=== PATIENT | male | born 1940 | race Caucasian/White ===

== ENCOUNTER 2017-07-09 10:45 | Outpatient (CLI) | payer MEDICARE, OTHER | END 2017-07-09 10:46 | disposition home or self-care (01) | LOC: BICRAD 10:45 | PROVIDERS: ATTEND Specialist | DX: M47.26 Other spondylosis with radiculopathy, lumbar region (principal); M41.86 Other forms of scoliosis, lumbar region; M47.22 Other spondylosis with radiculopathy, cervical region | CPT/HCPCS: 72050; 72120 ==

== ENCOUNTER 2017-12-04 11:06 | Outpatient (CLI) | payer MEDICARE ==
--- NOTE | 2017-12-04 14:35 | RAD ---
RIGHT HAND THREE VIEW: 12/04/17 HISTORY: M35.50 right hand and wrist pain. COMPARISON: None. FINDINGS: The bones are demineralized. No acute displaced fracture or malalignment. Moderate metacarpophalangea l joint space narrowing. There is ossification of the triangular fibrocartilage. There is ossicle of the ulnar styloid. IMPRESSION: Osseous demineralization. No acute fracture or malalignment. POS: [facility]
== END 2017-12-04 11:07 | disposition home or self-care (01) ==
LOC: BICRAD 11:06
PROVIDERS: ATTEND Specialist
DX: M25.531 Pain in right wrist (principal); M25.541 Pain in joints of right hand; M81.0 Age-related osteoporosis without current pathological fracture

== ENCOUNTER 2018-02-19 09:46 | Outpatient (CLI) | payer MEDICARE ==
--- NOTE | 2018-02-19 12:02 | CT ---
CT CHEST WITHOUT CONTRAST: 02/19/2018 HISTORY: COPD. Shortness of breath. Productive cough. Weight loss. COMPARISON: 11/08/2017 TECHNIQUE: Axial CT imaging at 2 mm intervals through the chest without contrast. Coronal reformatted imaging o btained. FINDINGS: The lack of contrast media limits assessment of the imaged viscera and the vascular structures and fo r lymphadenopathy. There is no obvious lymphadenopathy seen within the chest. The thyroid gland is diffusely lobulated and enlarged, particularly the right lobe, with posterior ex tension. The imaged upper abdomen demonstrates no acute findings. There are patchy areas of atherosclerotic c alcification of the proximal abdominal aorta and its branches. There is no evidence for pneumothorax on either side. There is extensive central lobular and subpleural emphysematous changes, with an upper lobe predomina nce, stable. There are numerous calcified and noncalcified bilateral pleural plaques, similar when compared to the prior examination, suggesting prior asbestos exposure. There is scattered atherosclerotic calcification of the coronary arteries and the thoracic aorta. There is no dominant pulmonary parenchymal mass lesion or nodule noted in the left upper lobe. There are patchy peripheral areas of mild increased density within the inferior aspect of the left lo wer lobe, at the level of the left hemidiaphragm, new/more prominent than on the prior examination. This could be related to infectious pneumonitis or volume loss. Along the inferior-most aspect of the right lower lobe, abutting a mildly elevated right hemidiaphrag m, are patchy areas of peripheral pulmonary parenchymal opacity, slightly more prominent than on the prior examination, particularly the posterior-inferior right upper lobe. This could represent volume loss or infectious pneumonitis within the right lower lobe. There is persistent linear density in the right middle lobe, suggesting volume loss or scar. Review of the osseous structures demonstrates no worrisome lytic or blastic bone lesion. IMPRESSION: Extensive chronic change, as detailed above. This includes centrilobular and paraseptal emphysematou s change, as well as elevation of right hemidiaphragm and extensive pleural plaque formation on the b asis of probable prior asbestos exposure. Of note, there is mild increased parenchymal opacity in darrin th lower lobes, when compared to the prior examination, of uncertain significance. This could signif y volume loss associated with shallow inspiration, but mild bibasilar infectious pneumonitis or aspir ation cannot be excluded. Recommend follow-up imaging, following treatment, to document resolution. POS: [facility]
== END 2018-02-19 09:47 | disposition home or self-care (01) ==
LOC: BICCT 09:46
PROVIDERS: ATTEND Specialist
DX: J44.9 Chronic obstructive pulmonary disease, unspecified (principal); R64 Cachexia; Q79.1 Other congenital malformations of diaphragm; J92.9 Pleural plaque without asbestos; R91.8 Other nonspecific abnormal finding of lung field
CPT/HCPCS: 71250

== ENCOUNTER 2018-03-10 19:06 | Emergency (ER) | payer MEDICARE ==
[2018-03-10 21:23] LABS: #Eosinphils 0.2 thou/uL (0.0-0.7); #Lymphocytes 1.4 thou/uL (1.20-3.40); #Monocytes 0.9 thou/uL (0.11-0.59); %Basophils 0.1 % (0.0-1.0); %Eosinophils 1.4 % (0.0-10.0); %Monocytes 7.6 % (0.0-10.0); %Neutrophils 78.8 % (42.0-75.0); Hemoglobin 16.1 g/dL (14.0-18.0); Mean Corpuscular HGB CONC 30.8 g/dL (32.0-36.0); Mean Corpuscular Hemoglobin 28.4 pg (27.0-31.0); Mean Corpuscular Volume 92.1 fL (78.0-98.0); Mean Platelet Volume 9.1 fL (7.4-10.4); Platelet Count 350 thou/uL (130-400); RBC Distribution Width 12.6 % (11.5-14.5); Red Blood Cell (RBC) Count 5.67 mill/uL (4.70-6.10); White Blood Cell (WBC) Count 11.4 thou/uL (4.8-10.8)
[2018-03-10 21:46] LABS: ALT (SGPT) 36 U/L (8-55); AST (SGOT) 27 U/L (5-34); Albumin 3.9 g/dL (3.4-4.8); Alkaline Phosphatase 167 U/L (40-150); Anion Gap 16 mmol/L (10-20); BUN (Urea Nitrogen) 43 mg/dL (8.4-25.7); Bilirubin, Total 0.3 mg/dL (0.2-1.2); Calc. Creatinine Clearance 0 mL/min (70-130); Calcium 10.8 mg/dL (7.8-10.44); Carbon Dioxide 27 mmol/L (23-31); Chloride 104 mmol/L (98-107); Estimated GFR-MDRD 75; Globulin 4.6 g/dL (2.4-3.5); Glucose 128 mg/dL (83-110); Potassium 4.6 mmol/L (3.5-5.1); Protein, Total 8.5 g/dL (5.8-8.1); Sodium 142 mmol/L (136-145)
--- NOTE | 2018-03-10 23:47 | RAD ---
PORTABLE CHEST: 03/10/2018 PROVIDED CLINICAL HISTORY: Cough. COMPARISON: CT examination performed on 02/19/2018. FINDINGS: Bibasilar parenchymal and interstitial opacities are redemonstrated, similar to that study. The card iac and mediastinal silhouette are unchanged in appearance. No evidence for pneumothorax or large ef fusion. IMPRESSION: Persistent bibasilar parenchymal opacities. Followup is recommended. POS: [facility]
--- NOTE | 2018-03-10 23:49 | CT ---
CT BRAIN: 03/10/2018 PROVIDED CLINICAL HISTORY: Dysphagia. COMPARISON: None. FINDINGS: The ventricular system appears normal in size and morphology. There is no evidence for intracranial hemorrhage or mass effect. Areas of diminished attenuation are seen involving the cerebral white mat ter, most likely reflecting chronic microvascular ischemic change. The extracranial soft tissues and osseous structures demonstrate an unremarkable CT appearance, with the exception of fluid density wi thin the left maxillary sinus. IMPRESSION: 1. No evidence for intracranial hemorrhage or mass effect. 2. Left maxillary sinus fluid density. Correlate for acute sinusitis. POS: [facility]
== END 2018-03-11 01:38 | disposition home or self-care (01) ==
LOC: ERS 19:06
DX: R13.10 Dysphagia, unspecified (principal); E78.5 Hyperlipidemia, unspecified; Z87.891 Personal history of nicotine dependence; Z79.899 Other long term (current) drug therapy
CPT/HCPCS: 36415; 70450; 71045; 80053; 85025; 96360; 96361

== ENCOUNTER 2018-03-12 09:59 | Inpatient (IN) | payer MEDICARE ==
[2018-03-12] MEDS ORDERED: CEFAZOLIN 2 GM/50 ML BAG ONE (12:01)
[2018-03-12] MEDS ORDERED: Fentanyl 100 MCG/2 ML VIAL ONE ×2 (12:51→14:14)
[2018-03-12] MEDS ORDERED: PROPOFOL 200 MG/20 ML VIAL ONE (15:06)
[2018-03-12] MEDS ORDERED: Lidocaine 1% PF 5 ML VIAL ONE (15:06)
[2018-03-12 16:52] LABS: #Eosinphils 0.2 thou/uL (0.0-0.7); #Lymphocytes 1.2 thou/uL (1.20-3.40); #Monocytes 0.6 thou/uL (0.11-0.59); #Neutrophils 8.8 thou/uL (1.40-6.50); %Basophils 0.2 % (0.0-1.0); %Eosinophils 1.5 % (0.0-10.0); %Lymphocytes 10.8 % (21.0-51.0); %Monocytes 5.9 % (0.0-10.0); %Neutrophils 81.7 % (42.0-75.0); Hemoglobin 14.7 g/dL (14.0-18.0); Mean Corpuscular HGB CONC 31.9 g/dL (32.0-36.0); Mean Corpuscular Hemoglobin 29.4 pg (27.0-31.0); Mean Corpuscular Volume 92.2 fL (78.0-98.0); Mean Platelet Volume 8.8 fL (7.4-10.4); Platelet Count 260 thou/uL (130-400); RBC Distribution Width 12.5 % (11.5-14.5); White Blood Cell (WBC) Count 10.7 thou/uL (4.8-10.8)
[2018-03-12 17:32] LABS: ALT (SGPT) 26 U/L (8-55); AST (SGOT) 20 U/L (5-34); Albumin 3.2 g/dL (3.4-4.8); Alkaline Phosphatase 116 U/L (40-150); Anion Gap 15 mmol/L (10-20); BUN (Urea Nitrogen) 27 mg/dL (8.4-25.7); Bilirubin, Total 0.3 mg/dL (0.2-1.2); Calc. Creatinine Clearance 75 mL/min (70-130); Calcium 9.8 mg/dL (7.8-10.44); Carbon Dioxide 24 mmol/L (23-31); Chloride 106 mmol/L (98-107); Estimated GFR-MDRD Greater than 90; Globulin 3.4 g/dL (2.4-3.5); Glucose 86 mg/dL (83-110); Magnesium 1.7 mg/dL (1.6-2.6); Potassium 4.1 mmol/L (3.5-5.1); Protein, Total 6.6 g/dL (5.8-8.1); Sodium 141 mmol/L (136-145)
[2018-03-12 17:44] LABS: Syphilis Antibody Nonreactive (Nonreactive); Syphilis Antibody Index 0.06 S/CO (<1.00 Non-Reactive)
[2018-03-12] MEDS: Lactated Ringer's 1,000 ML IV SCH (18:58)
[2018-03-12] MEDS: Tamsulosin HCl 0.4 MG CAP PO SCH (19:54)
[2018-03-12] MEDS: Citalopram 20 MG TAB PO SCH (19:54)
[2018-03-12] MEDS: Finasteride 5 MG TAB PO SCH (19:54)
[2018-03-13] MEDS: Lactated Ringer's 1,000 ML IV SCH ×2 (05:24→09:02)
[2018-03-13] MEDS ORDERED: Prevnar 13-Val Conj/PF 0.5 ML SYRINGE IM ONE (09:00)
[2018-03-13 10:19] LABS: Reference Lab Name LABCORP
[2018-03-13 10:20] LABS: Ref Lab Test Ordered ACETYLCHOLINE AB
--- NOTE | 2018-03-13 12:08 | CON ---
DATE OF CONSULTATION: 03/12/2018 CONSULTING PHYSICIAN: Bill Mukherjee MD CHIEF COMPLAINT: Severe dysphagia with extreme weight loss. HISTORY OF PRESENT ILLNESS: The patient is a 77-year-old male, who since the month of July and August of 2017 have been having increasing dysphagia and weight loss. Workups have been ongoing to find the source and reason for this, it is coming down to a swallowing disorder, at the back of his throat where he simply feels like he is choking every time he takes a bite and ultimately has diminished his p.o. consumption to the point where he is severely malnourished and failing to thrive. The patient went to the emergency room on 03/12/2018 and arranged a plan for PEG placement on the day of observation on 03/12/2018. He denies fevers, chills, severe pain in any specific location. He has lost 30 pounds since September. There has been no evidence of CVA on previous MRI performed in September. He is a former smoker with 60 plus pack year. His ENT is Dr. Colindres. PAST MEDICAL HISTORY: Includes hyperlipidemia; COPD, emphysematous type; history of GERD; BPH; and recently depression. PAST SURGICAL HISTORY: Prior surgeries include right shoulder. PAST PSYCHIATRIC HISTORY: Depression. SOCIAL HISTORY: As previously mentioned, he is a former smoker of 60 plus pack years. He is , retired, has been less than 10 years since he quit smoking. No significant alcohol intake. ALLERGIES: TO LIDOCAINE. MEDICATIONS: At this time, 1. Flomax 0.4 mg p.o. daily. 2. Citalopram 20 mg p.o. daily. REVIEW OF SYSTEMS: At the time of consultation were significant for generalized weakness and inability to lay flat due to a feeling of dyspnea, ongoing dysphagia with weight loss. Denies chest pain, blood in urine or stool, or skin disorders. PHYSICAL EXAMINATION: At the time of consultation, VITAL SIGNS: Blood pressure is 116/69, pulse 85, respirations 19, and O2 saturation 92% on nasal cannula, which is ineffective since he is mouth breathing. His weight at the time of evaluation is 142. GENERAL: This is a cachectic, malnourished-appearing male, alert, responsive, with sunken eyes and temporal wasting. HEENT: Ears, nose, and throat show no obvious lesions. NECK: Supple. Nontender. CHEST: With diminished breath sounds throughout. HEART: Regular rate and rhythm without murmur. ABDOMEN: Now with PEG site that is clean and dry. No drainage. Nontender. No hepatosplenomegaly. : Deferred. EXTREMITIES: Without clubbing, cyanosis, or edema, but significant muscle wasting in both upper and lower extremities. SKIN: Without rashes or lesions. NEUROLOGIC: Cranial nerves are intact. Unable to test gait and cerebellar function at this time. Sensory exam is intact. LABORATORY WORK: Thus far, WBC is 10.7, hemoglobin 14.7, hematocrit 46 with platelets at 260. Sodium is 141, potassium 4.0, CO2 at 24, BUN 27, creatinine 0.75, and greater than 90 on GFR. Liver functions unremarkable. TSH 0.87. B12 level 41. RPR negative. Acetylcholinesterase antibodies are still pending at the time of evaluation as well as CPK. ASSESSMENT: 1. Dysphagia with extreme weight loss. 2. Adult failure to thrive. 3. Chronic obstructive pulmonary disease - emphysema. 4. BPH. 5. Depression. PLAN: The patient has had PEG placement and tube feedings are beginning. Further evaluation per Dr. Mukherjee and will provide supportive care and see the patient daily until discharge. Job ID: [id number]
[2018-03-13] MEDS: Finasteride 5 MG TAB PO SCH (21:27)
[2018-03-13] MEDS: Tamsulosin HCl 0.4 MG CAP PO SCH (21:27)
[2018-03-13] MEDS: Citalopram 20 MG TAB PO SCH (21:27)
[2018-03-13] MEDS ORDERED: Melatonin 3 MG TAB PO SCH (22:15)
--- NOTE | 2018-03-14 00:19 | CON ---
DATE OF CONSULTATION: 03/13/2018 CONSULTING PHYSICIAN: Dr. Mukherjee. 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 PLAN: 1. Discharge the patient for office followup for EMG and nerve conduction studies. 2. Follow up on acetylcholine receptor antibody. HISTORY OF PRESENT ILLNESS: Mr. Barrett is a 77-year-old man who reportedly was doing fine until last summer. He started experiencing some progressive weakness in his right hand. He thought it was diagnosed with possible cubital tunnel syndrome. Despite the decompressive surgery, his weakness progressed. He started noticing more weakness in his legs to the point that he was having trouble walking. There was some progressive dysphagia that was occurring around the same time by his 's assessment. Situation steadily worsened to the point that he is no longer able to swallow. He denies any muscle cramping, but has had some fasciculations. He had an MRI of the brain done at the onset of these symptoms, which reportedly was normal. He is without any complaints of pain, tingling, or numbness. He denies any double vision, blurred vision, headache, nausea, vomiting, or vertigo. PAST MEDICAL HISTORY: BPH. MEDICATIONS: 1. Finasteride. 2. Celexa. 3. Tamsulosin. ALLERGIES: LIDOCAINE. SOCIAL HISTORY: No tobacco or alcohol use. He is . FAMILY HISTORY: Unremarkable. REVIEW OF SYSTEMS: HEENT: No complaints of hearing loss or tinnitus. NECK: No complaints of throat pain. Positive for difficulty swallowing. PULMONARY: No complaints of shortness of breath, cough, or chest pain. CARDIOVASCULAR: No complaints of tachycardia or palpitations. EXTREMITIES: Positive for some right arm tenderness. ABDOMEN: No complaints of cramps or diarrhea. NEUROLOGIC: No complaints of tingling, numbness, or tremors. PHYSICAL EXAMINATION: GENERAL: He is a somewhat cachectic appearing elderly man, lying in bed, in no acute distress. VITAL SIGNS: Blood pressure 112/71, pulse 74, respirations 16, temperature 98.4. HEENT: Pupils are equal and reactive. Conjunctivae are clear. Oropharynx is a bit dry. There is no tongue fasciculations noted. Cranium, normocephalic and atraumatic. NECK: Supple with good strength for both flexion and extension. No lymphadenopathy noted. EXTREMITIES: There is some peripheral swelling in his hands, but no cyanosis. ABDOMEN: Soft and nontender. NEUROLOGIC: He was alert and cooperative. His speech was mildly dysarthric due to his lack of dentition. He was appropriate and follow commands in an normal fashion. Cranial nerve exam showed good eye closure strength and good lower facial strength as well. The palate elevated to the midline. Motor exam showed right upper extremity to have only about 2/5 strength distally and 3/5 strength proximally. Left upper extremity was generally 4- in strength throughout, both lower extremities had approximately 4-/5 strength with antigravity strength at the hips. Some fasciculations were noted in the right leg and calf muscles of the legs. Sensation was intact to touch in both extremities. Plantar responses were downgoing. Reflexes were 2+ and present throughout including the right upper extremity. No cerebellar testing was not possible, but no tremor was seen. Gait was not testable at this time. SUMMARY: This is an elderly man with some progressive weight loss, muscle atrophy with asymmetric pattern. This subsequently involved swallowing as well. He has preserved reflexes which would go against peripheral neuropathy. Given the fasciculations that are present as well, I am strongly suspicious for motor neuron disease. Further testing will be needed to define whether this is the case. I would be happy to see him as an outpatient. Job ID: [id number]
[2018-03-14] MEDS: Lactated Ringer's 1,000 ML IV SCH ×3 (02:05→21:05)
[2018-03-14] MEDS ORDERED: Lorazepam 1 MG TAB PO PRN ×2 (06:43→11:55)
--- NOTE | 2018-03-14 06:57 | PRG ---
DATE OF SERVICE: 03/13/2018 SUBJECTIVE: Mr. Barrett is in bed. He was seen by Neurology Service yesterday. They have ordered some testing and by today and see him. He states he feels okay. They started tube feeds. I have talked with the dietitian and the speech pathologist. The dietitian left recommendation and gave verbal orders to institute those feeds. The speech pathologist felt that he is unsafe for oral intake and recommend ice chips only at this point in time and they are going to start speech therapy. MEDICATIONS: 1. Celexa. 2. Proscar. 3. Tamsulosin. PHYSICAL EXAMINATION: VITAL SIGNS: Temperature 97, pulse 67, blood pressure 133/60. GENERAL: The patient is grossly cachectic. LUNGS: Clear. HEART: Regular rhythm without rubs or murmurs. ABDOMEN: Soft and nontender. LABORATORY DATA: White count was 10.7, hemoglobin is 14.7, and platelet count was 260. TSH, B12, CK all normal. Comprehensive metabolic profile normal except for albumin of 3.2, with protein of 6.6. RPR negative. ASSESSMENT: 1. Oropharyngeal dysphagia secondary to unknown global neurologic disorder. The patient with severe cachexia, suspected to be secondary to possibly neurologic disorder and dysphagia. Malignancy is always a concern. The patient reports he has been seen by Pulmonary. After all, I did not find anything significantly reasonable to do aCAT scan of the abdomen and pelvis. 2. At this point in time, we will start tube feeds. 3. We will start speech pathology. 4. Await Neurology final evaluation. 5. The patient will be considered for rehab placement after this hospitalization depending on diagnosis and prognosis. Job ID: [id number]
[2018-03-14] MEDS ORDERED: Pancrelipase DR 12000 1 CAP PER TUBE PRN (08:38)
[2018-03-14] MEDS ORDERED: Sodium Bicarbonate Tab 325 MG TAB PER TUBE PRN (08:39)
[2018-03-14 11:26] LABS: Actual Bicarbonate (HCO3a) 27.7 mEq/L (22-28); CO2 Tension 57.1 mmHg (35.0-45.0); Calcium, Ionized 1.24 mmol/L (1.12-1.30); Carboxyhemoglobin (COHb) 1.5 gm% (0.0-3.0); Hemoglobin (Hb) 15.2 g/dL (14.0-18.0); O2 Tension (PaO2) 60.6 mmHg (> 70.0); Potassium - ABG Lab 4.13 mmol/L (3.70-5.30)
[2018-03-14 11:27] LABS: ALV-art Gradient 295.825 (0-20); Puncture Site RR
[2018-03-14] MEDS ORDERED: Melatonin 3 MG TAB PO PRN (12:00)
--- NOTE | 2018-03-14 12:01 | RAD ---
SINGLE VIEW OF THE CHEST: Comparison: 03-10-18 History: Code green. On bipap. Shortness of breath. FINDINGS: Single view of the chest shows a normal sized cardiomediastinal silhouette. Opacities are seen in bot h lung bases which may represent atelectasis or scarring. Of these may also represent calcifications. Pleural calcifications are seen in the bilateral apices. Small bilateral pleural effusions may also be present. IMPRESSION: Stable exam. POS: [facility]
[2018-03-14] MEDS: methylPREDNISolone Sod Succ 40 MG VIAL IVP SCH ×2 (12:48→19:43)
--- NOTE | 2018-03-14 13:56 | CON ---
DATE OF CONSULTATION: HISTORY OF PRESENT ILLNESS: Nick Barrett is a 77-year-old gentleman, who was transferred from the surgical unit after he was found to be obtunded with respiratory failure. He is on noninvasive ventilation and Pulmonary is consulted in the MICU. I looked at his chest x-ray, which now shows bibasilar infiltrates. Apparently, history from the states that the patient has had a gradual decline in his mental status now for a long period of time. He has seen several different doctors, went to see an ENT physician at [facility], had dysphagia problems, had secretion issues, and has lost considerable weight about 35 pounds. He has seen Dr. Vences, a harness maker and Dr. Angel, aluminum container tester in our office, who said he had COPD, but his condition was not as bad. He underwent a CAT scan of his chest in February, which shows extensive chronic changes, but no masses were seen. He is in the hospital for failure to thrive. PEG has been inserted. PAST MEDICAL HISTORY: BPH, COPD, marked weight loss, depression. PAST SURGICAL HISTORY: Basal cell carcinoma from the face that is removed 7 years ago, followed by radio tower technician at [facility], no evidence of recurrent disease. Otherwise, he had the right shoulder surgery done. PAST SURGICAL HISTORY: He is a journeyman pipe welder in the past. HOME MEDICATIONS: Celexa 20, tamsulosin 0.4, and finasteride 5 mg ALLERGIES: LIDOCAINE. REVIEW OF SYSTEMS: Otherwise 10 point negative. PHYSICAL EXAMINATION: GENERAL: Cachectic patient in no obvious respiratory distress. VITAL SIGNS: Saturations on BiPAP 93% to 94%, temperature 98, pulse 95, blood pressure 83632. CHEST: Decreased breath sounds without any wheezing. CARDIAC: Sinus tach. ABDOMEN: Soft. NEUROLOGIC: Essentially unresponsive, cachectic. LABORATORY DATA: Chest x-ray shows bilateral pneumonia. PO2 was 60, pCO2 57, pH 7.3 on a BiPAP. White count was 10.7. His chemistry profile shows normal BUN and creatinine. IMPRESSION: 1. Respiratory failure, bilateral bronchopneumonia. 2. Chronic obstructive pulmonary disease. 3. Cachexia. 4. Metabolic encephalopathy, etiology unclear. 5. Dysphagia, felt to be myasthenia by neurologist. PLAN: I discussed with his at length. At this stage, I would recommend comfort care. She is to discuss once again with her primary care physician regarding ongoing issues regarding intubation, vent support etc. Clearly, he has developed aspiration pneumonia. His last CAT scan showed chronic changes. No other infiltrates were seen. Because of his gradual decline over 4 to 5 months, my suggestion would be comfort care. In the meantime, I will start antibiotics, neb treatments, steroids. This is a 70 minutes consultation time, 50% direct patient care. Job ID: [id number]
--- NOTE | 2018-03-14 17:42 | PRG ---
DATE OF SERVICE: 03/14/2018 SUBJECTIVE: Mr. Barrett had a code green this morning with respiratory distress. He had a pulse ox in the 80s, was sent to the IMU on BiPAP. He has been seen by Dr. Hodge and noted that he has a significant infiltrate on chest x-ray. It is felt that he probably has some aspiration pneumonia which I have agreed with the most likely etiology to develop respiratory distress, although it could be related with poor work of breathing. He has been tolerating tube feeds well. As these were held this morning, we had respiratory issues. The nurse in the floor where he was denied any findings of regurgitation. OBJECTIVE: VITAL SIGNS: Temperature 97.4, pulse 80, blood pressure is 140/89. HEENT: Oropharynx, dry. LUNGS: Decreased excursion. ABDOMEN: Nontender and nondistended. HEART: Regular rate and rhythm. EXTREMITIES: Reveal muscular wasting. He is hyperreflexic. LABORATORY DATA: Labs done today. ABG showed a pH of 7.30, O2 of 90, pO2 of 60, CO2 of 57. ASSESSMENT: 1. Oropharyngeal dysphagia secondary to primary neurologic disorder. 2. Neurologic disorder. Neurology is concerned about possible motor neuron disease as he has preserved. 3. Hyperreflexia and fasciculations of his muscles. 4. Aspiration. May be he will aspirate on feeding content or even possible secretions. He was drinking some sips of liquid. I have talked with Dr. Hodge. He is okay with restarting tube feeds. PLAN: We would recommend starting tube feeds at 20 an hour. If there are signs of aspiration or regurgitation, recommend stopping that. Otherwise, we will defer care to Neurology. Primary service and Pulmonary at this point in time, will evaluate him with his tube feeds or GI issues. Dr. Thomas will be covering over the weekend. Otherwise, I will return on Saturday. Job ID: [id number]
[2018-03-14] MEDS: Tamsulosin HCl 0.4 MG CAP PO SCH (19:43)
[2018-03-14] MEDS: Cefepime 1 GM in Sodium Chloride 0.9% 100 ML IVPB SCH (19:43)
[2018-03-14] MEDS: Finasteride 5 MG TAB PO SCH (19:43)
[2018-03-14] MEDS: Citalopram 20 MG TAB PO SCH (19:43)
[2018-03-15] MEDS: methylPREDNISolone Sod Succ 40 MG VIAL IVP SCH ×4 (00:30→18:21)
[2018-03-15 06:20] LABS: #Basophils 0.2 thou/uL (0.0-0.2); #Eosinphils 0.1 thou/uL (0.0-0.7); #Lymphocytes 0.4 thou/uL (1.20-3.40); #Monocytes 0.5 thou/uL (0.11-0.59); #Neutrophils 13.4 thou/uL (1.40-6.50); %Basophils 1.1 % (0.0-1.0); %Eosinophils 0.5 % (0.0-10.0); %Lymphocytes 2.8 % (21.0-51.0); %Monocytes 3.7 % (0.0-10.0); Hemoglobin 13.1 g/dL (14.0-18.0); Mean Corpuscular HGB CONC 32.4 g/dL (32.0-36.0); Mean Corpuscular Hemoglobin 29.2 pg (27.0-31.0); Mean Corpuscular Volume 90.1 fL (78.0-98.0); Mean Platelet Volume 10.4 fL (7.4-10.4); Platelet Count 177 thou/uL (130-400); RBC Distribution Width 12.4 % (11.5-14.5); Red Blood Cell (RBC) Count 4.48 mill/uL (4.70-6.10); White Blood Cell (WBC) Count 14.5 thou/uL (4.8-10.8)
[2018-03-15 06:30] LABS: Anion Gap 14 mmol/L (10-20); BUN (Urea Nitrogen) 12 mg/dL (8.4-25.7); Calc. Creatinine Clearance 85 mL/min (70-130); Carbon Dioxide 23 mmol/L (23-31); Chloride 104 mmol/L (98-107); Estimated GFR-MDRD Greater than 90; Glucose 190 mg/dL (83-110); Potassium 4.2 mmol/L (3.5-5.1); Sodium 137 mmol/L (136-145)
[2018-03-15] MEDS: Cefepime 1 GM in Sodium Chloride 0.9% 100 ML IVPB SCH ×2 (08:47→20:14)
[2018-03-15] MEDS: Lactated Ringer's 1,000 ML IV SCH (08:47)
--- NOTE | 2018-03-15 11:01 | PRG ---
DATE OF SERVICE: 03/15/2018 SUBJECTIVE: This morning, he is awake, alert, responsive, and verbalizing. OBJECTIVE: VITAL SIGNS: Saturations 92% on 4 L, temperature 98, blood pressure 119/63. CHEST: Decreased breath sounds. No wheezing. CARDIAC: Normal S1 and S2. No gallops. ABDOMEN: No masses. LABORATORY DATA: His lytes are normal. His white count 14,000, H and H 13 and 40, and platelet count is normal. IMPRESSION: Respiratory failure, bilateral bronchopneumonia, severe deconditioning, and dysphagia. PLAN: Continue antibiotics, neb treatments, and steroids. Can probably be transferred out of the MICU later. Job ID: [id number]
[2018-03-15] MEDS: Sodium Chloride 0.9% 1,000 ML IV SCH (18:21)
[2018-03-15] MEDS: Citalopram 20 MG TAB PO SCH (20:14)
[2018-03-15] MEDS: Finasteride 5 MG TAB PO SCH (20:14)
[2018-03-15] MEDS: Tamsulosin HCl 0.4 MG CAP PO SCH (20:15)
[2018-03-16] MEDS: methylPREDNISolone Sod Succ 40 MG VIAL IVP SCH ×4 (01:08→17:12)
[2018-03-16 05:03] LABS: #Lymphocytes 0.3 thou/uL (1.20-3.40); #Monocytes 0.9 thou/uL (0.11-0.59); #Neutrophils 13.7 thou/uL (1.40-6.50); %Basophils 0.1 % (0.0-1.0); %Lymphocytes 2.3 % (21.0-51.0); %Neutrophils 91.6 % (42.0-75.0); Hemoglobin 13.1 g/dL (14.0-18.0); Mean Corpuscular HGB CONC 31.8 g/dL (32.0-36.0); Mean Corpuscular Hemoglobin 29.7 pg (27.0-31.0); Mean Corpuscular Volume 93.5 fL (78.0-98.0); Platelet Count 195 thou/uL (130-400); RBC Distribution Width 12.7 % (11.5-14.5); Red Blood Cell (RBC) Count 4.41 mill/uL (4.70-6.10)
[2018-03-16 05:23] LABS: Anion Gap 11 mmol/L (10-20); BUN (Urea Nitrogen) 20 mg/dL (8.4-25.7); Calc. Creatinine Clearance 99 mL/min (70-130); Calcium 9.4 mg/dL (7.8-10.44); Carbon Dioxide 27 mmol/L (23-31); Chloride 105 mmol/L (98-107); Estimated GFR-MDRD Greater than 90; Glucose 174 mg/dL (83-110); Sodium 139 mmol/L (136-145)
[2018-03-16] MEDS: Sodium Chloride 0.9% 1,000 ML IV SCH ×3 (05:40→17:23)
[2018-03-16] MEDS: Cefepime 1 GM in Sodium Chloride 0.9% 100 ML IVPB SCH ×2 (10:11→21:15)
--- NOTE | 2018-03-16 10:30 | PRG ---
DATE OF SERVICE: 03/16/2018 SUBJECTIVE: This morning, he is doing much better, awake, responsive. He is sleeping on his BiPAP without any issues. OBJECTIVE: VITAL SIGNS: Temperature is 97, pulse 90, saturations 99%, and blood pressure 110/62. GENERAL: He is appropriate. CHEST: Decreased breath sounds. No wheezing. CARDIAC: Normal S1 and S2. No gallops. LABORATORY DATA: White count . IMPRESSION: Respiratory failure, bilateral pneumonia, atelectasis, severe deconditioning, unknown neurological problem. PLAN: Continue steroids, neb treatments, antibiotics, and PT. Job ID: [id number]
[2018-03-16] MEDS ORDERED: Melatonin 3 MG TAB PER TUBE PRN (16:41)
[2018-03-16] MEDS: Azithromycin 500 MG in Sodium Chloride 0.9% 250 ML 250 ML IVPB SCH (17:11)
[2018-03-16] MEDS: Lorazepam 1 MG TAB PER TUBE PRN (17:12)
[2018-03-16] MEDS ORDERED: Citalopram 20 MG TAB PER TUBE SCH (21:00)
[2018-03-16] MEDS: Tamsulosin HCl 0.4 MG CAP PO SCH (21:15)
[2018-03-16] MEDS: Finasteride 5 MG TAB PO SCH (21:15)
[2018-03-17] MEDS: methylPREDNISolone Sod Succ 40 MG VIAL IVP SCH ×4 (00:18→20:23)
[2018-03-17] MEDS: Lorazepam 1 MG TAB PER TUBE PRN ×2 (01:52→18:10)
[2018-03-17 05:33] LABS: Band 12 % (5-11); Hemoglobin 12.5 g/dL (14.0-18.0); Hypochromia SLIGHT = 6-15 cells (100X) (0-5/hpf); Lymphocytes 1 % (21-51); MDiff Complete? YES; Mean Corpuscular HGB CONC 31.8 g/dL (32.0-36.0); Mean Corpuscular Hemoglobin 29.6 pg (27.0-31.0); Mean Corpuscular Volume 93.1 fL (78.0-98.0); Monocytes 5 % (0-10); Neutrophil 82 % (42-75); Platelet Count 207 thou/uL (130-400); Platelet Morphology Comment Appears Adequate; RBC Distribution Width 12.6 % (11.5-14.5); Red Blood Cell (RBC) Count 4.22 mill/uL (4.70-6.10); White Blood Cell (WBC) Count 16.9 thou/uL (4.8-10.8)
[2018-03-17] MEDS: Sodium Chloride 0.9% 1,000 ML IV SCH ×2 (08:00→20:30)
[2018-03-17] MEDS ORDERED: Furosemide 20 MG/2 ML VIAL SLOW IVP SCH (08:30)
--- NOTE | 2018-03-17 09:01 | RAD ---
CHEST 1 VIEW: HISTORY: Dysphagia. Dyspnea. Followup. COMPARISON: 03/14/2018. FINDINGS: Cardiac silhouette is magnified and more obscured by increase in pleural fluid and dense bibasilar in filtrates. Pulmonary vasculature is engorged with bilateral perihilar infiltrate. Mediastinum is mi dline with aortic calcification. Biapical pleural thickening and calcification are again demonstrate d. No evidence of pneumothorax. Postoperative changes right shoulder. IMPRESSION: 1. Worsening radiographic appearance of pulmonary vascular congestion and bilateral pleural fluid. 2. Atherosclerosis. POS: [facility]
[2018-03-17] MEDS: Albumin 25% 25 GM/100 ML BOT IVPB SCH ×3 (09:45→20:26)
[2018-03-17] MEDS: Pantoprazole 40 MG GRANULES PACKET PER TUBE SCH (09:46)
[2018-03-17] MEDS: Cefepime 1 GM in Sodium Chloride 0.9% 100 ML IVPB SCH ×2 (09:48→23:02)
[2018-03-17] MEDS: Lorazepam 2 MG/ML VIAL SLOW IVP PRN ×3 (11:23→23:02)
[2018-03-17 11:38] VITALS: BMI 27.8
[2018-03-17] MEDS: Tamsulosin HCl 0.4 MG CAP PO SCH (20:23)
[2018-03-17] MEDS: Finasteride 5 MG TAB PO SCH (20:23)
[2018-03-17] MEDS: Azithromycin 500 MG in Sodium Chloride 0.9% 250 ML 250 ML IVPB SCH (20:23)
--- NOTE | 2018-03-17 20:55 | PRG ---
DATE OF SERVICE: 03/17/2018 SUBJECTIVE: Mr. Barrett events had been reviewed. This gentleman was seen by me in the office once last fall with complaints of progressive neurological peripheral strength decline, difficulty swallowing, some shortness of breath, and severe weight loss. It was my feeling that lung disease is a very small part of his presenting complaints and the progressive systemic neurological problem was more likely to be the culprit for his multiple symptoms. He was admitted basically with failure to thrive from what I can tell. He has been supportive with noninvasive ventilation. He is not bronchospastic. According to the notes, he has been clinically improving, although he is obviously extremely weak. CT scan was done in February, showing pleural plaques bilaterally and no mass lesions. He had some finding suggestive of recurrent aspiration. Chest x-ray done today shows bilateral effusions and increase in markings bilaterally. He is still on BiPAP. OBJECTIVE: VITAL SIGNS: He is afebrile, heart rate in the 90s, respiratory rates in the 20s, and oximetry is 94%. LUNGS: Remarkable for mild rhonchi. HEART: Regular rhythm. ABDOMEN: Soft. LABORATORY DATA: White count 16.9, hemoglobin 12.5, and platelets 207,000. Electrolytes yesterday were normal. IMPRESSION: Inability to handle his secretions secondary to progressive declining neurological illness ? Melissa Gehrig disease. PLAN: I have explained to the that his strength will not improve. He will probably continue to aspirate his oral secretions and be unable to effectively clear his airway. He will continue antimicrobial therapy empirically. Prognosis is dismal. Job ID: [id number]
[2018-03-18] MEDS: methylPREDNISolone Sod Succ 40 MG VIAL IVP SCH ×5 (01:26→23:39)
[2018-03-18] MEDS: Albumin 25% 25 GM/100 ML BOT IVPB SCH ×2 (02:26→09:24)
[2018-03-18] MEDS ORDERED: Furosemide 40 MG/4 ML VIAL ONE (04:11)
[2018-03-18] MEDS: Sodium Chloride 0.9% 1,000 ML IV SCH ×2 (04:45→16:41)
[2018-03-18 06:14] LABS: Band 23 % (5-11); Lymphocytes 5 % (21-51); MDiff Complete? YES; Mean Corpuscular HGB CONC 31.7 g/dL (32.0-36.0); Mean Corpuscular Hemoglobin 29.4 pg (27.0-31.0); Mean Corpuscular Volume 92.9 fL (78.0-98.0); Mean Platelet Volume 9.5 fL (7.4-10.4); Metamyelocyte 1 % (0-0); Monocytes 8 % (0-10); Neutrophil 63 % (42-75); Platelet Count 207 thou/uL (130-400); Platelet Morphology Comment Appears Adequate; RBC Distribution Width 12.6 % (11.5-14.5); Red Blood Cell (RBC) Count 4.09 mill/uL (4.70-6.10); White Blood Cell (WBC) Count 18.8 thou/uL (4.8-10.8)
[2018-03-18] MEDS: Lorazepam 2 MG/ML VIAL SLOW IVP PRN ×5 (06:31→23:36)
[2018-03-18] MEDS: Cefepime 1 GM in Sodium Chloride 0.9% 100 ML IVPB SCH ×2 (09:24→20:44)
[2018-03-18] MEDS: Pantoprazole 40 MG GRANULES PACKET PER TUBE SCH (09:24)
--- NOTE | 2018-03-18 09:50 | PRG ---
DATE OF SERVICE: 03/18/2018 SUBJECTIVE: Nick Barrett is poorly responsive. He has significant signs of respiratory muscle weakness. OBJECTIVE: VITAL SIGNS: He is afebrile. Heart rate 108, respiratory rate is 18, oximetry is 96 on 3 L, blood pressure 136/78. LUNGS: Remarkable for rhonchi. HEART: Regular rhythm. ABDOMEN: Soft. LABORATORY DATA: White count 18.8, hemoglobin 12.0, platelets 207,000. Electrolytes were normal 2 days ago. IMPRESSION: Progressive decline in neuromuscular function, ? Melissa Gehrig disease. His symptoms started in his right upper extremity and have been progressive since October, which argues against this being an ascending paralysis such as CIDP. Comfort care is probably the best option at this point. Job ID: [id number]
--- NOTE | 2018-03-18 15:38 | PQF ---
CLINICAL DOCUMENTATION IMPROVEMENT CLARIFICATION FORM: ICD-10 Updated PLEASE DO AN ADDENDUM TO THE PROGRESS NOTE WITH ANY DOCUMENTATION UPDATES OR ADDITIONS AND CARRY THROUGH TO DC SUMMARY. THANK YOU. Date: 03/18/18 ATTN: Dr. Knowles Please exercise your independent, professional judgment in responding to the clarification form. Clinical indicators are provided on the bottom of this form for your review Please check appropriate box(s): [ x ] Protein Calorie Malnutrition: [ ] Mild [ ] Moderate [ x ] Severe [ ] Other Malnutrition (please specify) [ x] Other diagnosis ___dysphagia possible pallavi Gehrig disease [ ] Unable to determine In addition, please specify: Present on Admission (POA): [ x ] Yes [ ] No [ ] Unable to determine CLINICAL INDICATORS - SIGNS / SYMPTOMS / LABS 03/12 (Dr. Knowles): has diminished his po consumption to the point where he is severely malnourished and failing to thrive. This is a cachectic, malnourished-appearing male, alert, responsive, with sunken eyes and temporal wasting. 03/13 (Dr. Knowles): Malnutrition from extreme wt loss [employer] Assessment 03/13: Nutrition dx: Malnutrition related to inability to consume sufficient PO intake as evidence by severe malnutrition in the context of chronic illness, 18.9% wt loss over past 6 months, muscle wasting noted, and less than 50% energy needs for 1 month RISKS: Consult 03/12: Dysphagia with extreme weight loss. Adult failure to thrive. Chronic obstructive pulmonary disease - emphysema. TREATMENT: 03/12 (Dr. Knowles):The pt has had Peg placement and tube feedings are beginning. Moderate Malnutrition (in acute illness) Energy Intake: <75% of estimated energy requirement for > 7 days Weight Loss: 1-2%/1 week; 5%/ 1 month; 7.5%/3 months Other: mild body fat loss; mild muscle mass loss; mild fluid accumulation; Severe Malnutrition (in acute illness) Energy Intake: < 50% of estimated energy requirement for > 5 days Weight Loss: >1-2%/1 week; >5%/1 month; >7.5%/3 months Other: moderate body fat loss; moderate muscle mass loss; moderate- severe fluid accumulation; measurably reduced photocopy operator strength Moderate Malnutrition (in chronic illness) Energy Intake: <75% of estimated energy requirement for >1 month Weight Loss: 5%/1 month; 7.5%/3 months; 10%/6 months; 20%/1 year Other: mild body fat loss; mild muscle mass loss; mild fluid accumulation Severe Malnutrition (in chronic illness) Energy Intake: <75% of estimated energy requirement for >1 month Weight Loss: >5%/1 month; >7.5%/3 months; >10%/6 months; >20%/1 year Other: severe body fat loss; severe muscle mass loss; severe fluid accumulation; measurably reduced photocopy operator strength Thank you, Idania (This form is maintained as a part of the permanent medical record) 2014 [email or web address]. All Rights Reserved Idania Bahena RN, BSN [email or web address] Office: [phone] [facility]
[2018-03-18] MEDS: Azithromycin 500 MG in Sodium Chloride 0.9% 250 ML 250 ML IVPB SCH (16:41)
[2018-03-18] MEDS: Lorazepam 1 MG TAB PER TUBE PRN (20:44)
[2018-03-18] MEDS: Tamsulosin HCl 0.4 MG CAP PO SCH (20:44)
[2018-03-18] MEDS: Finasteride 5 MG TAB PO SCH (20:44)
[2018-03-19] MEDS ORDERED: Furosemide 40 MG/4 ML VIAL ONE (01:36)
[2018-03-19] MEDS ORDERED: Morphine 4 MG/ML VIAL ONE (01:37)
[2018-03-19] MEDS ORDERED: Morphine 4 MG/ML VIAL SLOW IVP PRN (01:40)
[2018-03-19] MEDS ORDERED: Furosemide 40 MG/4 ML VIAL SLOW IVP SCH (01:45)
[2018-03-19] MEDS: Sodium Chloride 0.9% 1,000 ML IV SCH (03:35)
[2018-03-19 04:01] VITALS: BP 149/80; TEMP 97.3
[2018-03-19] MEDS: Morphine 4 MG/ML VIAL SLOW IVP PRN ×5 (04:30→15:13)
[2018-03-19] MEDS: methylPREDNISolone Sod Succ 40 MG VIAL IVP SCH ×2 (05:49→11:41)
[2018-03-19] MEDS: Cefepime 1 GM in Sodium Chloride 0.9% 100 ML IVPB SCH (08:03)
[2018-03-19] MEDS: Pantoprazole 40 MG GRANULES PACKET PER TUBE SCH (08:04)
--- NOTE | 2018-03-19 17:55 | PRG ---
DATE OF SERVICE: 03/19/2018 SUBJECTIVE: Nick Barrett is unresponsive. He is using nothing with accessory muscles. He has signs of severe respiratory muscle weakness. OBJECTIVE: LUNGS: Remarkable for rhonchi. HEART: Regular rhythm. ABDOMEN: Soft. IMPRESSION: End of life neuromuscular disease, ?Melissa Mariahig's. He is going to inpatient hospice today. I met with the and the family and answered all their questions. I do believe he is in a peaceful place. I am sad for her. It would be easier a little bit if we had a diagnosis for his neuromuscular process. I would not expect him to survive more than a few days. His wants to continue feeding him which I am okay with, but just delays his passing which I believe is inevitable. I switched him to percutaneous endoscopic gastrostomy tube antimicrobial therapy. Job ID: [id number]
[2018-03-19] MEDS ORDERED: Amoxicillin/Potassium Clav 875 MG TAB PO SCH (21:00)
--- NOTE | 2018-03-20 14:08 | DIS ---
DATE OF ADMISSION: 03/12/2018 DATE OF DISCHARGE: 03/19/2018 I am actually a construction consultant on this, I am not his admitting physician, Dr. Deonte Mukherjee is the admitting physician. DATE OF TRANSFER TO INPATIENT HOSPICE: 03/19/2018. CHIEF COMPLAINT ON ADMISSION: Oropharyngeal dysphagia, weight loss, muscle weakness. HISTORY OF PRESENT ILLNESS: The history and physical have been dictated by Dr. Deonte Mukherjee, it is in his office notes and is on the chart. I will resume from there with hospital course. HOSPITAL COURSE: The patient was placed in the surgical bed in preparation for EGD and PEG placement. This was performed, trach placement was done on 03/12/2018. Then on 03/13, Dr. Mukherjee ordered speech evaluation, swallow evaluation, and it was determined that they could begin tube feedings on 03/13/2018. Neurology consultation was also obtained to help elucidate what type of neurological disorder he has. Dr. 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 I was asked to consult on his care on 03/13/2018, as well and I resumed his usual medications per PEG. By 03/14, chest x-ray was performed as a part of a code green. Apparently, the patient began to have O2 desaturations down to 84% at 11:00 a.m. Heart rate increased as did his anxiety. He was moved from the regular bed down to [facility]. Dr. Hodge saw the patient in consultation as well, supportive BiPAP therapy was then applied and did relieve much of the patient's anxiety. By 03/15/2018, he was alert, in no acute distress, conversive. White count up a little bit to 14, 000. Chest had bilateral baseline rales. Again on neuro exam, he was weak and unable to swallow. It was felt that he may be getting pneumonia and may have aspirated as the reason for his O2 desaturation. As mentioned previously, tube feedings were begun. Physical therapy was ordered. By 03/16, he is feeling stronger, more alert and at times would come off the BiPAP. White count elevated to 15,000 and it appeared that his respiratory failure might be improving. Then by 03/17, his anxiety made it impossible to come off the BiPAP. He was having panic attacks and it was necessary to increase his anxiolytics. His chest had crackles and rhonchi in bilateral bases and it was felt that he had pneumonia and COPD in place as well as an undetermined upper motor neuron disorder. We diuresed him with some low-dose Lasix at that time. By 03/18, he had gotten much weaker, unable to talk, pulse over 100. Chest x-ray showed worsening congestion. Exam showed diffuse rhonchi and diminishing strength to breathe was noted. His respiratory failure was worsening and aspiration was a possibility. His prognosis became very poor and it was time to consider palliative care and/or hospice. By 03/19, his anxiety was significant on BiPAP. He was in some distress requiring morphine to help calm him down and relax his anxiety and dyspnea. He was nonresponsive. At this point, it appeared that he may have Melissa Gehrig disease with aspiration pneumonia and we were beginning comfort measures and making him an inpatient hospice patient. He was then accepted by Dr. Berger on hospice and transferred to their care on 03/19/2018. 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 2. Aspiration pneumonia. 3. Chronic obstructive pulmonary disease. 4. Severe anxiety disorder. PLAN: Comfort measures and inpatient hospice care. The time required to review the chart, examine the patient, automobile travel club counselor his , answering her questions, reconciling his medications prior to transfer was 35 minutes. He was transferred in serious condition with a very poor prognosis. Job ID: [id number] MTDD
--- NOTE | 2018-03-20 14:13 | OP ---
DATE OF PROCEDURE: 03/12/2018 PREPROCEDURE DIAGNOSES: 1. Weight loss. 2. Oropharyngeal dysphagia with aspiration. 3. Suspected neurologic disorder. PROCEDURES PERFORMED: EGD with PEG tube placement. POSTPROCEDURE DIAGNOSIS: Only significant for mild duodenitis. PEG tube placement, Ponsky pull technique. Biopsies obtained for 12 Helicobacter pylori and of the duodenitis. RECOMMENDATIONS: Start tube feeds, admit to the hospital for full neurologic evaluation and diagnose disorder. PROCEDURE IN DETAIL: The patient was informed of the risks, benefits, and possible complications of endoscopy including perforation, bleeding, reaction to medication, and aspiration and informed consent was obtained. The patient was brought to the endoscopy suite, where he was sedated in gradual fashion. Once he was comfortable, a bite block was placed into the oropharynx. The endoscope was advanced to the esophagus, stomach, and 2nd and 3rd portion of the duodenum and the scope was slowly removed. There was good visualization of the mucosa. There were no masses, lesions, or AV malformation identified. Adequate place for PEG tube placement was identified and PEG tube was placed using Ponsky pull technique second-look confirmed good placement. There was no bleeding or complication. There was mild duodenitis in the third part of the duodenum. Biopsies taken from this area and from the stomach to rule out underlying pathology. These results are pending. The scope was removed. The patient tolerated the procedure well with no complications. Job ID: [id number]
== END 2018-03-19 16:55 | disposition hospice, inpatient (51) | DRG 56 ==
LOC: SDC 09:59 → OBSVTOIN 13:25 → SURG A 13:25 → IMCU/EMU 03-14 11:42
PROVIDERS: ADMIT Internal Medicine Gastroenterology; ATTEND Internal Medicine Gastroenterology
PROC: 0DB98ZX Excision of Duodenum, Via Natural or Artificial Opening Endoscopic, Diagnostic (ICD-10-PCS; principal; 2018-03-12)
PROC: 0DH63UZ Insertion of Feeding Device into Stomach, Percutaneous Approach (ICD-10-PCS; 2018-03-12)
PROC: 5A09357 Assistance with Respiratory Ventilation, Less than 24 Consecutive Hours, Continuous Positive Airway Pressure (ICD-10-PCS; 2018-03-14)
PROC: 5A09457 Assistance with Respiratory Ventilation, 24-96 Consecutive Hours, Continuous Positive Airway Pressure (ICD-10-PCS; 2018-03-15)
DX: G12.21 Amyotrophic lateral sclerosis (principal); J96.90 Respiratory failure, unspecified, unspecified whether with hypoxia or hypercapnia; J69.0 Pneumonitis due to inhalation of food and vomit; E43 Unspecified severe protein-calorie malnutrition; G93.41 Metabolic encephalopathy; R13.12 Dysphagia, oropharyngeal phase; Z51.5 Encounter for palliative care; F41.0 Panic disorder [episodic paroxysmal anxiety]; R62.7 Adult failure to thrive; K29.80 Duodenitis without bleeding; J43.9 Emphysema, unspecified; N40.0 Benign prostatic hyperplasia without lower urinary tract symptoms; Z68.28 Body mass index [BMI] 28.0-28.9, adult; E78.5 Hyperlipidemia, unspecified; F32.9 Major depressive disorder, single episode, unspecified; Z87.891 Personal history of nicotine dependence; Z88.6 Allergy status to analgesic agent; Z79.899 Other long term (current) drug therapy
CPT/HCPCS: 36415; 70450; 71045; 80048; 80053; 82550; 82607; 82805; 83735; 84100; 84425; 84443; 85025; 85379; 86780; 88305; 88312; 94640; 94660; 96360; 96361; J0456; J0692; J1940; J2001; J2060; J2270; J2704; J2920; J3010; J7050; J7620; P9047